=== PATIENT | male | born 1965 | race Caucasian/White ===

== ENCOUNTER → 2021-11-25 | Outpatient (CLI) | payer BC ==
[~2021-11-25] VITALS: Ht 182.9 cm; Wt 136.1 kg
== END ==
LOC: EROP 12:52
DX: U07.1 COVID-19 (principal); E11.9 Type 2 diabetes mellitus without complications; I10 Essential (primary) hypertension; Z23 Encounter for immunization
CPT/HCPCS: M0247; Q0247